=== PATIENT | female | born 1995 | race Caucasian/White ===

== ENCOUNTER 2017-08-23 15:02 | Emergency (ER) | payer SELFPAY ==
[~2017-08-23] VITALS: Ht 177.8 cm; Wt 141.3 kg
[~2017-08-23 15:02] MED LIST: ABILIFY30 MG PO; ADDERALL20 MG PO; ASPIR 8181 M1 PO; Adderall XR PO; BIRTH CONTROL PILLS; CLEOCIN300 MG PO; DOCUSATE SODIU100 MG PO; ENDOCET 5-3251 EACH PO; FERROUS SULFAT325 MG PO; FLONASE16 G1 BOTH NARES; GRALISE600 MG PO; IBUPROFEN800 MG PO; KEFLEX500 MG PO; LAMOTRIGINE200 MG PO; LATUDA40 MG PO; MEDROXYPROGEST2.5 MG PO; MUCUS-ER MAX1200 MG PO; Motrin PO; PREFERA-OB P1 TABLET PO; PROVENTIL,200 INHALA IH; Percocet 5/325,Endoc PO; Proventil,Ventolin H IH; SEROQUEL50 MG PO; TAMIFLU75 MG PO; ULTRAM50 MG PO; VITAFOL-OB+DHA1 EACH PO
[2017-08-23] MEDS ORDERED: ZITHROMAX Z-PA250 MG PO (16:46)
[2017-08-23] MEDS ORDERED: VENTOLIN HFA18 GM IH (16:46)
[2017-08-23] MEDS ORDERED: MOTRIN800 MG PO (16:46)
[2017-08-23 17:01] VITALS: BP 134/94
== END 2017-08-23 17:09 | disposition home or self-care (01) ==
LOC: EME 15:02
PROVIDERS: Emergency Medicine
DX: J02.0 Streptococcal pharyngitis (principal); R05 Cough; R07.89 Other chest pain; R51 Headache; J45.909 Unspecified asthma, uncomplicated
CPT/HCPCS: 81025; 87651 90; 94640; 99281; 99283